=== PATIENT | male | born 1945 | race Caucasian/White ===

== ENCOUNTER 2019-02-13 12:31 | Emergency (ER) | payer OTHER ==
[~2019-02-13] VITALS: Ht 165.1 cm; Wt 130.2 kg
[~2019-02-13 12:31] MED LIST: ALLOPURINOL 30300 M2 PO; AMARYL2 M1 PO; ARICEPT 5 MG TAB5 MG PO; ASPIR 8181 MG PO; ASPIRIN325 PO; BYSTOLIC 5 MG5 M1 PO; FISH OIL 1,001000 M2 PO; GABAPENTIN 100100 MG PO; HYDROCODON-ACE1 EAC7; KLOR-CON 1010 MEQ PO; LANTUS100 UNIT/M SUBQ; LASIX 40 MG TAB40 M2 PO; LIPITOR40 MG PO; LISINOPRIL20 MG PO; NITROSTAT0.4 M1 PO; PACERONE 200 M200 M1 PO; VITAMIN D1000 UNI1 PO
[2019-02-13] MEDS ORDERED: NAMENDA 10 MG T10 MG PO (12:50)
[2019-02-13] MEDS ORDERED: HUMALOG100 UNIT/1 SUBQ (12:50)
[2019-02-13] MEDS ORDERED: LANTUS SUBQ (12:51)
[2019-02-13 13:34] LABS: URINE BILIRUBIN NEGATIVE (Negative); URINE BLOOD NEGATIVE (Negative); URINE CLARITY CLEAR; URINE COLOR YELLOW; URINE GLUCOSE-RANDOM* NEGATIVE (Negative); URINE KETONES NEGATIVE (Negative); URINE LEUKOCYTES-REFLEX NEGATIVE (Negative); URINE NITRITE-REFLEX NEGATIVE (Negative); URINE PROTEIN (DIPSTICK) TRACE (Negative); URINE SPECIFIC GRAVITY 1.025 (1.005-1.035); URINE UROBILINOGEN 0.2 E.U./dl (0.2-1.0)
[2019-02-13 13:36] LABS: ABSOLUTE NEUTROPHILS 11.3 thou/uL (1.4-8.2); BASOPHILS 1.1 % (0.0-2.0); EOSINOPHILS 1.1 % (0.0-3.0); LYMPHOCYTES 8.1 % (24.0-44.0); MCHC 32.7 g/dL (28.0-37.0); MONOCYTES 5.9 % (1.0-8.0); PLATELET COUNT 249 thou/uL (150-400); POLYS 83.8 % (36.0-66.0); RBC 5.16 mil/uL (4.50-6.00); RDW 14.4 % (10.5-14.5); WBC 13.5 thou/uL (4.0-11.0)
[2019-02-13 13:50] LABS: CALCIUM 9.2 mg/dL (8.5-10.1); CREATININE 1.7 mg/dL (0.7-1.3)
[2019-02-13 13:54] LABS: ALBUMIN 3.8 g/dL (3.4-5.0); DIRECT BILIRUBIN 0.2 mg/dL (<0.1-0.3); TOTAL BILIRUBIN 0.7 mg/dL (<0.1-1.0); TOTAL PROTEIN 7.5 g/dL (6.4-8.2)
[2019-02-13 17:14] VITALS: BP 149/77
== END 2019-02-13 17:14 | disposition home or self-care (01) ==
LOC: ER 12:31
PROVIDERS: Emergency Medicine
DX: N17.9 Acute kidney failure, unspecified (principal); R19.7 Diarrhea, unspecified; I10 Essential (primary) hypertension; E11.9 Type 2 diabetes mellitus without complications; E78.00 Pure hypercholesterolemia, unspecified; K21.9 Gastro-esophageal reflux disease without esophagitis; M19.90 Unspecified osteoarthritis, unspecified site; G47.30 Sleep apnea, unspecified; F03.90 Unspecified dementia, unspecified severity, without behavioral disturbance, psychotic disturbance, mood disturbance, and anxiety; Z87.891 Personal history of nicotine dependence; Z90.49 Acquired absence of other specified parts of digestive tract; Z87.442 Personal history of urinary calculi; Z88.0 Allergy status to penicillin; Z88.6 Allergy status to analgesic agent

== ENCOUNTER → 2019-04-19 | Outpatient (CLI) | payer OTHER ==
[~2019-04-19] MED LIST changes: +HUMALOG100 UNIT/1 SUBQ; +LANTUS SUBQ; +NAMENDA 10 MG T10 MG PO; +ZOLOFT25 MG PO
== END ==
LOC: SJCVCIMAG 09:21
DX: I08.1 Rheumatic disorders of both mitral and tricuspid valves (principal); I11.9 Hypertensive heart disease without heart failure; I25.89 Other forms of chronic ischemic heart disease; I25.10 Atherosclerotic heart disease of native coronary artery without angina pectoris; I48.0 Paroxysmal atrial fibrillation; E78.5 Hyperlipidemia, unspecified; G47.30 Sleep apnea, unspecified; E11.9 Type 2 diabetes mellitus without complications; Z79.4 Long term (current) use of insulin; Z95.1 Presence of aortocoronary bypass graft; Z88.0 Allergy status to penicillin; Z88.8 Allergy status to other drugs, medicaments and biological substances; Z88.5 Allergy status to narcotic agent; Z79.899 Other long term (current) drug therapy; Z87.891 Personal history of nicotine dependence

== ENCOUNTER 2019-04-28 09:35 | Outpatient (CLI) | payer OTHER ==
[2019-04-28] VITALS (10 sets, daily range): BP systolic 141–170; BP diastolic 65–751
[~2019-04-28] VITALS: Ht 165.1 cm; Wt 149.0 kg
[~2019-04-28 09:35] MED LIST changes: -ZOLOFT25 MG PO
[2019-04-28 11:04] LABS: CALCIUM 9.1 mg/dL (8.5-10.1); CREATININE 1.3 mg/dL (0.7-1.3); POTASSIUM 4.1 mmol/L (3.5-5.1)
[2019-04-28] MEDS ORDERED: ZOLOFT25 MG PO (11:04)
[2019-04-28 12:07] LABS: HEMATOCRIT 45.1 % (42.0-52.0); HEMOGLOBIN 14.8 gm/dL (14.0-18.0); MCH 31.3 pg (26.0-34.0); MCHC 32.8 g/dL (28.0-37.0); MCV 95.6 fL (80.0-100.0); RBC 4.71 mil/uL (4.50-6.00); RDW 14.5 % (10.5-14.5); WBC 10.2 thou/uL (4.0-11.0)
--- NOTE | 2019-04-28 15:58 | NUR ---
REPORT TO JOANA SEE
--- NOTE | 2019-04-28 16:37 | EKG ---
[facility] [place] [address] ELECTROCARDIOGRAM REPORT Name: ANUP MEYER Room #: 216-P [facility] M..#: [id number] Admission: 04/28/19 Attend Phys: Anup Yung MD, Discharge: Date of : 41 Report #: [id number] THIS REPORT FOR: cc: Omar Kyle MD, Steven E. MD Lundgren,Ronnie Cobb MD [facility] ~ THIS REPORT FOR: //name// [facility] Test Date: 2019-04-28 Test Time: 10:15:33 Pat Name: ANUP MEYER Department: Room: Gender: Radiation Therapy Technologist: Latonia BOJORQUEZ : 1945 Requested By: Anup Yung Order Number: [id number] MD: Ronnie Vazquez Measurements Intervals [place] Rate: 64 P: -6 WA: 204 QRS: -34 QRSD: 100 T: 49 QT: 448 QTc: 463 Interpretive Statements Sinus rhythm Left axis deviation Abnormal R-wave progression, late transition Borderline T abnormalities, anterior leads Compared to ECG 08/11/2004 06:48:32 Left-axis deviation now present T-wave abnormality now present Electronically Signed On 04-28-2019 16:36:22 MEDICAL DIRECTOR OF HOSPICE by Ronnie Vazquez [email or web address] <ELECTRONICALLY SIGNED> By: Ronnie Vazquez MD, [facility] 04/28/19 1636 [id number] Ronnie Vazquez MD, [facility] /EPI
--- NOTE | 2019-04-28 17:59 | NUR ---
OBSERVATION PATIENT FOR POST CARDIAC HEART CATH WITHOUT ABLATION, A/OX4 WITH FORGETFULNESS, DENIES CHEST PAIN, DENIES SOB, RIGHT GROIN SITE C/D/I. FOLLOWING POST CATH INTERVENTION PROTOCOL WITH VS AND HOB LIMIT TO 30 DEGREE, AND LEG TO BE STILL. VOID PER URINAL 200CC. DR COLE NOTIFIED FOR ELEVATED BP PHYSICIAN WILL ROUND ON PATIENT PRIOR TO PATIENT DC'S HOME. AND DAUGTER BEDSIDE. CALL LIGHT IN REACH WITH FALL PRECAUTIONS IN PLACE.
--- NOTE | 2019-04-29 17:47 | CATHLAB ---
[facility] [place] [address] INVASIVE PROCEDURE REPORT Name: ANUP MEYER Room #: DEP Stephon Hoffmann#: [id number] Admission: 04/28/19 Attend Phys: Anup Yung MD, Discharge: 04/28/19 Date of : 41 Report #: [id number] THIS REPORT FOR: cc: Omar Kyle MD, Steven E. MD Mancuso, Gerald M. MD [facility] ~ APPROVED REPORT Study performed: 04/28/2019 14:29:33 Patient Details Patient Status: Out-Patient Room #: The patient is a 74 year-old male Event Personnel Anup Yung Fisher, Misael Sue RTR Monitor, Silvia Boyle RN RN, Stephanie Richards Jackson, Sherra RTR Monitor Procedures Performed Art Access - R femoral artery* Aortogram Abdominal Peripheral Angio 506322 50912 Initial Mod Sed Same Phys/QHP Gr 951323 47067 Mod Sed Same Phys/QHP Ea 161758 Hemostasis w/ Mynx Left Heart Cath Coronaries, Bypass Grafts [id number] LHCCORCABG Indication Chest pain Procedure Narrative The Right Groin^ was infiltrated with 1% Lidocaine subcutaneous anesthesia. A PINNACLE 6FR Sheath #[id number] sheath was inserted into the RFA^. Coronary angiography was performed using coronary diagnostic catheters. The right coronary system was accessed and visualized with a JR4 catheter. The left coronary system was accessed and visualized with a JL4 catheter. The left ventricle was accessed and visualized with a pigtail catheter. Left ventriculogram was performed in 30 degree projection. An aortogram of the abdominal aorta was performed. Closure device was deployed with a Fr MYNXGRIP 6/7F #[id number]. The patient tolerated the procedure well and there were no complications associated with the procedure. There was no hematoma. Intraoperative Conscious Sedation Sedation start time: 145 Case end Time: [facility] [place] [address] INVASIVE PROCEDURE REPORT Name: ANUP MEYER Room #: [facility] Shun#: [id number] Admission: 04/28/19 Attend Phys: Anup Yung, Discharge: 04/28/19 Date of : 41 Report #: [id number] Fentanyl 75 mcg Versed 1.5 mg Fluoro Time: 5.46 minutes Dose: DAP 12832.90 cGycm2 1380 mGy Contrast Type and Amount: Visipaque 135 ml Hemodynamics The aortic pressure is 157/77 mmHg with a mean of 102 mmHg. The left ventricular pressure is 139/9 mmHg with a mean of mmHg. The left ventricular end diastolic pressure is 20 mmHg. Conclusion #1 left main free of disease giving rise to a diagonal system also to LAD and occluded LAD proximally. #2 LAD is occluded proximally filled via a REED graft. Proximal diagonal is 60-70% mildly diseased #3 circumflex OM circumflex moderately diseased first OM branch is occluded. 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 Mildly diseased LAD distal to the graft inserts. #5 dominant right coronary artery is mildly ectatic and calcification. Large PDA which is mildly disease. There is a branch of the posterior lateral which has high-grade disease relatively small area of distribution. We'll treat this medically. #6 a radial graft is intact to the first OM which is occluded. Is mildly diseased the OM system is diffusely disease relatively small distribution #7 normal left ventricular size and systolic function EF 55% #8 abdominal aorta is intact mild irregularity no aneurysm. Renal arteries appear patent. Recommendations and plan: Continue aggressive risk factor modification. No indication for coronary intervention. Posterior lateral branch could be intervened on but would treat this medically. Symptomatically I do not believe he would improve and he is relatively asymptomatic except for generalized fatigue. <ELECTRONICALLY SIGNED> By: Anup Yung MD, [facility] 04/29/191745 45 45 Anup Yung MD, FACC /INF
== END 2019-04-28 19:00 | disposition home or self-care (01) ==
LOC: CATH 09:35 → 2N 16:32 → CATH 19:00
PROVIDERS: Internal Medicine Cardiovascular Disease
DX: R07.9 Chest pain, unspecified (principal); I25.810 Atherosclerosis of coronary artery bypass graft(s) without angina pectoris; I25.84 Coronary atherosclerosis due to calcified coronary lesion; I12.9 Hypertensive chronic kidney disease with stage 1 through stage 4 chronic kidney disease, or unspecified chronic kidney disease; E11.22 Type 2 diabetes mellitus with diabetic chronic kidney disease; N18.3 Chronic kidney disease, stage 3 (moderate); I25.2 Old myocardial infarction; E78.5 Hyperlipidemia, unspecified; I42.9 Cardiomyopathy, unspecified; K21.9 Gastro-esophageal reflux disease without esophagitis; I73.9 Peripheral vascular disease, unspecified; M19.90 Unspecified osteoarthritis, unspecified site; F03.90 Unspecified dementia, unspecified severity, without behavioral disturbance, psychotic disturbance, mood disturbance, and anxiety; E66.09 Other obesity due to excess calories; G47.33 Obstructive sleep apnea (adult) (pediatric); Z95.1 Presence of aortocoronary bypass graft; Z98.890 Other specified postprocedural states; Z79.899 Other long term (current) drug therapy; Z79.4 Long term (current) use of insulin; Z87.891 Personal history of nicotine dependence; Z87.442 Personal history of urinary calculi; Z98.42 Cataract extraction status, left eye
CPT/HCPCS: 10081

== ENCOUNTER → 2019-11-08 | Outpatient (CLI) | payer OTHER ==
[~2019-11-08] MED LIST changes: +ZOLOFT25 MG PO
== END ==
LOC: SJCVC 14:14
PROVIDERS: ATTEND Internal Medicine Cardiovascular Disease
DX: I25.10 Atherosclerotic heart disease of native coronary artery without angina pectoris (principal); I44.0 Atrioventricular block, first degree; I10 Essential (primary) hypertension; E78.00 Pure hypercholesterolemia, unspecified; F01.51 Vascular dementia, unspecified severity, with behavioral disturbance; E11.9 Type 2 diabetes mellitus without complications; I48.0 Paroxysmal atrial fibrillation; Z95.1 Presence of aortocoronary bypass graft; Z79.899 Other long term (current) drug therapy; Z87.891 Personal history of nicotine dependence

== ENCOUNTER → 2020-07-10 | Outpatient (CLI) | payer OTHER | LOC: SJCVC 14:09 | PROVIDERS: ATTEND Internal Medicine Cardiovascular Disease | DX: I25.810 Atherosclerosis of coronary artery bypass graft(s) without angina pectoris (principal); E11.9 Type 2 diabetes mellitus without complications; G47.30 Sleep apnea, unspecified; G47.33 Obstructive sleep apnea (adult) (pediatric); I48.0 Paroxysmal atrial fibrillation; F01.51 Vascular dementia, unspecified severity, with behavioral disturbance; I12.9 Hypertensive chronic kidney disease with stage 1 through stage 4 chronic kidney disease, or unspecified chronic kidney disease; N18.30 Chronic kidney disease, stage 3 unspecified; E11.22 Type 2 diabetes mellitus with diabetic chronic kidney disease; E11.319 Type 2 diabetes mellitus with unspecified diabetic retinopathy without macular edema; Z99.89 Dependence on other enabling machines and devices; Z95.1 Presence of aortocoronary bypass graft; Z87.891 Personal history of nicotine dependence; Z72.89 Other problems related to lifestyle; Z79.82 Long term (current) use of aspirin; Z79.4 Long term (current) use of insulin; Z88.0 Allergy status to penicillin; Z88.5 Allergy status to narcotic agent; Z88.8 Allergy status to other drugs, medicaments and biological substances; E78.00 Pure hypercholesterolemia, unspecified; Z87.442 Personal history of urinary calculi; Z86.79 Personal history of other diseases of the circulatory system ==

== ENCOUNTER → 2021-01-22 | Outpatient (CLI) | payer OTHER | LOC: SJCVC 13:47 | PROVIDERS: ATTEND Internal Medicine Cardiovascular Disease | DX: R94.31 Abnormal electrocardiogram [ECG] [EKG] (principal); I25.810 Atherosclerosis of coronary artery bypass graft(s) without angina pectoris; E78.00 Pure hypercholesterolemia, unspecified; G47.33 Obstructive sleep apnea (adult) (pediatric); E11.9 Type 2 diabetes mellitus without complications; I12.9 Hypertensive chronic kidney disease with stage 1 through stage 4 chronic kidney disease, or unspecified chronic kidney disease; N18.9 Chronic kidney disease, unspecified; I25.2 Old myocardial infarction; Z95.1 Presence of aortocoronary bypass graft; Z79.4 Long term (current) use of insulin; Z79.899 Other long term (current) drug therapy; Z87.891 Personal history of nicotine dependence; Z72.89 Other problems related to lifestyle; Z79.82 Long term (current) use of aspirin; Z88.0 Allergy status to penicillin; Z88.5 Allergy status to narcotic agent; Z88.8 Allergy status to other drugs, medicaments and biological substances; G47.30 Sleep apnea, unspecified ==